=== PATIENT | female | born 1985 | race Two or more races ===

== ENCOUNTER 2021-09-12 08:02 | Emergency (ER) | payer SELFPAY ==
[~2021-09-12] VITALS: Ht 182.9 cm; Wt 102.0 kg
[2021-09-12 09:36] LABS: BASOPHILS % 0.4 % (0.0-2.0); EOSINOPHILS % 3.8 % (0.0-5.0); HEMATOCRIT. 31.7 % (36.0-48.0); HEMOGLOBIN. 10.4 g/dL (12.0-16.0); LYMPHOCYTES % 30.3 % (20.0-50.0); MEAN CORPUSCULAR HEMOGLOBIN 29.9 pg (28.0-32.0); MEAN CORPUSCULAR VOLUME 91.1 fL (81.0-99.0); MEAN PLATELET VOLUME 7.6 fl (7.4-10.4); NEUTROPHILS % 55.5 % (40.0-76.0); PLATELET 390 x1000/uL (130-400); RED BLOOD CELL COUNT 3.48 mill/uL (4.2-5.4); RED CELL DISTRIBUTION WIDTH 15.8 % (11.6-14.6)
[2021-09-12 09:39] LABS: CHLORIDE 108 mEq/L (98-107)
[2021-09-12 09:43] LABS: ETHANOL BLOOD < 10 mg/dL
[2021-09-12 11:53] LABS: CREATINE KINASE 278 IU/L (26-192)
[2021-09-12] MEDS ORDERED: SODIUM CHLORIDE 0.9% 1,000 ML IV ONE ×2 (12:00)
[2021-09-12] MEDS ORDERED: HYDROCODONE/ACETAMINOPHEN 10/325MG TABLET PO ONE (15:15)
[2021-09-12] MEDS ORDERED: IBUPROFEN 600MG TABLET PO ONE (15:15)
[2021-09-12 16:30] VITALS: BP 127/80
== END 2021-09-12 18:44 | disposition home or self-care (01) ==
LOC: ER 08:02
DX: G92.9 Unspecified toxic encephalopathy (principal); N19 Unspecified kidney failure; E86.0 Dehydration
CPT/HCPCS: 36415; 80048; 80053; 80320; 82140; 82550; 85025; 99284; J7030; 80305; G0480